=== PATIENT | male | born 1965 | race Caucasian/White ===

== ENCOUNTER → 2017-02-20 | Outpatient (CLI) | payer BC | LOC: BICRAD 15:24 | PROVIDERS: ATTEND Specialist | DX: M19.012 Primary osteoarthritis, left shoulder (principal); M25.512 Pain in left shoulder ==

== ENCOUNTER 2018-03-11 11:45 | Outpatient (CLI) | payer BC ==
--- NOTE | 2018-03-11 13:53 | RAD ---
LUMBAR SPINE THREE VIEWS: Indications: Back pain. FINDINGS: Lumbar vertebrae maintain normal height and alignment. Moderate degenerative osteophytes are present. No evidence of spondylolisthesis. Loss of disc space at L5-S1. Prominent facet hypertrophy at L5-S1 and mild facet hypertrophy at the other levels. IMPRESSION: Moderate degenerative change of the lumbar spine as described. POS: [facility]
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
== END 2018-03-11 11:46 | disposition home or self-care (01) ==
LOC: BICRAD 11:45
PROVIDERS: ATTEND Internal Medicine Rheumatology
DX: L40.50 Arthropathic psoriasis, unspecified (principal); M47.816 Spondylosis without myelopathy or radiculopathy, lumbar region
CPT/HCPCS: 71046; 72100

== ENCOUNTER 2018-12-16 10:00 | Outpatient (CLI) | payer BC ==
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
== END 2018-12-16 10:01 | disposition home or self-care (01) ==
LOC: BICRAD 10:00
PROVIDERS: ATTEND Specialist
DX: M25.511 Pain in right shoulder (principal); S41.001D Unspecified open wound of right shoulder, subsequent encounter